=== PATIENT | female | born 1955 | race American Indian/Alaskan Native ===

== ENCOUNTER 2017-08-12 11:33 | Emergency (ER) | payer SELFPAY ==
--- NOTE | 2017-08-12 12:10 | Emergency Department Report ---
ED General Adult HPI - General Chief complaint: Seizure Stated complaint: SEIZURE Time Seen by Provider: 08/12/17 12:09 Source: patient, EMS (ems notes not available at time of chart dictation), RN notes reviewed Mode of arrival: Stretcher Limitations: Altered Mental Status, Physical Limitation - History of Present Illness Initial comments: Past medical history: Ischemic stroke, left-sided, right-sided deficits, patient has home health aid, and is dependent on others for activities of daily living. Also has a history of multiple sclerosis and hypertension; private neurologist is Dr. Dimitry Pierce Patient is brought to the hospital by EMS for seizure-like activity. As per verbal report from nurse, there is no trauma, family corroborates this, patient given Ativan in the field by EMS, he should now sleepy, and is not able to describe exacerbating or relieving factors. As per her family, patient has been neurologically devastated from her prior stroke, and is heavily dependent on home health aide for help with activities of daily living. At her baseline, she requires assistance with getting dressed , getting closed, going to the bathroom. No fevers or chills. -: Gradual Improves with: medication - Related Data Home Medications Medication Instructions Recorded Confirmed Last Taken Losartan Potassium 50 mg PO DAILY 08/12/17 08/12/17 Unknown Metoprolol 25 mg PO BID 08/12/17 08/12/17 Unknown Sertraline 50 mg PO DAILY 08/12/17 08/12/17 Unknown Vitamin D3 500 mg PO DAILY 08/12/17 08/12/17 Unknown amLODIPine 5 mg PO DAILY 08/12/17 08/12/17 Unknown Previous Rx's Medication Instructions Recorded Last Taken Type levETIRAcetam [Keppra ORAL LIQ] 500 mg PO BID #1 bottle 08/12/17 Unknown Rx Allergies Allergy/AdvReac Type Severity Reaction Status Date / Time No Known Allergies Allergy Verified 08/12/17 11:50 ED Review of Systems ROS: Stated complaint: SEIZURE Other details as noted in HPI Constitutional: malaise Eyes: denies: vision change ENT: denies: epistaxis Respiratory: denies: cough Cardiovascular: denies: chest pain Gastrointestinal: denies: vomiting Genitourinary: as per HPI Musculoskeletal: as per HPI Skin: as per HPI Neurological: as per HPI, weakness Psychiatric: as per HPI ED Past Medical Hx - Past Medical History Hx Hypertension: Yes Additional medical history: MS stroke - Surgical History Past Surgical History?: No - Social History Smoking Status: Never Smoker Substance Use Type: None - Medications Home Medications: Home Medications Medication Instructions Recorded Confirmed Last Taken Type Losartan Potassium 50 mg PO DAILY 08/12/17 08/12/17 Unknown History Metoprolol 25 mg PO BID 08/12/17 08/12/17 Unknown History Sertraline 50 mg PO DAILY 08/12/17 08/12/17 Unknown History Vitamin D3 500 mg PO DAILY 08/12/17 08/12/17 Unknown History amLODIPine 5 mg PO DAILY 08/12/17 08/12/17 Unknown History levETIRAcetam [Keppra ORAL LIQ] 500 mg PO BID #1 bottle 08/12/17 Unknown Rx ED Physical Exam - General Limitations: Altered Mental Status, Physical Limitation General appearance: in no apparent distress - Head Head exam: Present: atraumatic, normocephalic - Eye Eye exam: Present: normal appearance, PERRL, EOMI - ENT ENT exam: Present: normal exam, normal orophraynx, mucous membranes moist, TM's normal bilaterally, normal external ear exam - Neck Neck exam: Present: normal inspection, full ROM. Absent: tenderness, meningismus - Respiratory Respiratory exam: Present: normal lung sounds bilaterally. Absent: respiratory distress, wheezes, rales, rhonchi, stridor, chest wall tenderness, accessory muscle use, decreased breath sounds, prolonged expiratory - Cardiovascular Cardiovascular Exam: Present: regular rate, normal rhythm, normal heart sounds. Absent: bradycardia, tachycardia, irregular rhythm, systolic murmur, diastolic murmur, rubs, gallop - GI/Abdominal GI/Abdominal exam: Present: soft, normal bowel sounds. Absent: distended, tenderness, guarding, rebound, rigid, pulsatile mass - Extremities Exam Extremities exam: Present: normal inspection, normal capillary refill. Absent: tenderness, calf tenderness - Back Exam Back exam: Present: normal inspection. Absent: tenderness, paraspinal tenderness - Neurological Exam Neurological exam: Present: alert, motor sensory deficit, other (patient is minimally verbal. She occasionally says "yes." Patient has 4 out of 5 strength bilateral upper and lower extremities. Patient is unable to indicate whether not she has any sensation intact.) - Psychiatric Psychiatric exam: Present: normal affect, normal mood - Skin Skin exam: Present: warm, dry, intact, normal color. Absent: rash ED Course Vital Signs 08/12/17 08/12/17 08/12/17 11:50 12:47 13:19 Temperature 97.8 F 98.7 F Pulse Rate 67 59 L Respiratory 16 Rate Blood Pressure 139/47 Blood Pressure 125/80 [Right] O2 Sat by Pulse 97 100 Oximetry 08/12/17 08/12/17 08/12/17 14:27 15:00 15:30 Temperature Pulse Rate 57 L 52 L 56 L Respiratory 14 15 14 Rate Blood Pressure Blood Pressure 132/77 133/72 127/72 [Right] O2 Sat by Pulse 99 99 98 Oximetry 08/12/17 08/12/17 16:00 16:30 Temperature Pulse Rate 57 L 59 L Respiratory 13 Rate Blood Pressure Blood Pressure 123/73 131/81 [Right] O2 Sat by Pulse 99 Oximetry ED Medical Decision Making - Lab Data Result diagrams: 08/12/17 13:59 08/12/17 13:59 Vital Signs 08/12/17 08/12/17 08/12/17 11:50 12:47 13:19 Temperature 97.8 F 98.7 F Pulse Rate 67 59 L Respiratory 16 Rate Blood Pressure 139/47 Blood Pressure 125/80 [Right] O2 Sat by Pulse 97 100 Oximetry Lab Results 08/12/17 08/12/17 08/12/17 Range/Units 13:20 13:59 13:59 WBC (4.5-11.0) K/mm3 RBC (3.65-5.03) M/mm3 Hgb (10.1-14.3) gm/dl Hct (30.3-42.9) % MCV (79-97) fl MCH (28-32) pg MCHC (30-34) % RDW (13.2-15.2) % Plt Count (140-440) K/mm3 PT 13.1 (12.2-14.9) Sec. INR 0.94 (0.87-1.13) APTT 28.2 (24.2-36.6) Sec. Sodium 138 (137-145) mmol/L Potassium 4.4 (3.6-5.0) mmol/L Chloride 102.6 (98-107) mmol/L Carbon Dioxide 27 (22-30) mmol/L Anion Gap 13 mmol/L BUN 7 (7-17) mg/dL Creatinine 0.7 (0.7-1.2) mg/dL Estimated GFR > 60 ml/min BUN/Creatinine Ratio 10 % Glucose 92 (65-100) mg/dL POC Glucose (70-105) Calcium 10.5 H (8.4-10.2) mg/dL Total Creatine Kinase (30-135) units/L HCG, Quant (0-4) mIU/mL Urine Color Straw (Yellow) Urine Turbidity Clear (Clear) Urine pH 7.0 (5.0-7.0) Ur Specific [place] 1.004 (1.003-1.030) Urine Protein <15 mg/dl (Negative) mg/dL Urine Glucose (UA) Neg (Negative) mg/dL Urine Ketones Neg (Negative) mg/dL Urine Blood Neg (Negative) Urine Nitrite Neg (Negative) Urine Bilirubin Neg (Negative) Urine Urobilinogen < 2.0 (<2.0) mg/dL Ur Leukocyte Esterase Neg (Negative) Urine WBC (Auto) < 1.0 (0.0-6.0) /HPF Urine RBC (Auto) < 1.0 (0.0-6.0) /HPF U Epithel Cells (Auto) 1.0 (0-13.0) /HPF Urine Mucus Few /HPF 08/12/17 08/12/17 08/12/17 Range/Units 13:59 13:59 13:59 WBC 5.2 (4.5-11.0) K/mm3 RBC 5.06 H (3.65-5.03) M/mm3 Hgb 13.8 (10.1-14.3) gm/dl Hct 41.5 (30.3-42.9) % MCV 82 (79-97) fl MCH 27 L (28-32) pg MCHC 33 (30-34) % RDW 14.8 (13.2-15.2) % Plt Count 243 (140-440) K/mm3 PT (12.2-14.9) Sec. INR (0.87-1.13) APTT (24.2-36.6) Sec. Sodium (137-145) mmol/L Potassium (3.6-5.0) mmol/L Chloride (98-107) mmol/L Carbon Dioxide (22-30) mmol/L Anion Gap mmol/L BUN (7-17) mg/dL Creatinine (0.7-1.2) mg/dL Estimated GFR ml/min BUN/Creatinine Ratio % Glucose (65-100) mg/dL POC Glucose (70-105) Calcium (8.4-10.2) mg/dL Total Creatine Kinase 48 (30-135) units/L HCG, Quant 6.25 H (0-4) mIU/mL Urine Color (Yellow) Urine Turbidity (Clear) Urine pH (5.0-7.0) Ur Specific [place] (1.003-1.030) Urine Protein (Negative) mg/dL Urine Glucose (UA) (Negative) mg/dL Urine Ketones (Negative) mg/dL Urine Blood (Negative) Urine Nitrite (Negative) Urine Bilirubin (Negative) Urine Urobilinogen (<2.0) mg/dL Ur Leukocyte Esterase (Negative) Urine WBC (Auto) (0.0-6.0) /HPF Urine RBC (Auto) (0.0-6.0) /HPF U Epithel Cells (Auto) (0-13.0) /HPF Urine Mucus /HPF 08/12/17 Range/Units 14:30 WBC (4.5-11.0) K/mm3 RBC (3.65-5.03) M/mm3 Hgb (10.1-14.3) gm/dl Hct (30.3-42.9) % MCV (79-97) fl MCH (28-32) pg MCHC (30-34) % RDW (13.2-15.2) % Plt Count (140-440) K/mm3 PT (12.2-14.9) Sec. INR (0.87-1.13) APTT (24.2-36.6) Sec. Sodium (137-145) mmol/L Potassium (3.6-5.0) mmol/L Chloride (98-107) mmol/L Carbon Dioxide (22-30) mmol/L Anion Gap mmol/L BUN (7-17) mg/dL Creatinine (0.7-1.2) mg/dL Estimated GFR ml/min BUN/Creatinine Ratio % Glucose (65-100) mg/dL POC Glucose 112 H (70-105) Calcium (8.4-10.2) mg/dL Total Creatine Kinase (30-135) units/L HCG, Quant (0-4) mIU/mL Urine Color (Yellow) Urine Turbidity (Clear) Urine pH (5.0-7.0) Ur Specific [place] (1.003-1.030) Urine Protein (Negative) mg/dL Urine Glucose (UA) (Negative) mg/dL Urine Ketones (Negative) mg/dL Urine Blood (Negative) Urine Nitrite (Negative) Urine Bilirubin (Negative) Urine Urobilinogen (<2.0) mg/dL Ur Leukocyte Esterase (Negative) Urine WBC (Auto) (0.0-6.0) /HPF Urine RBC (Auto) (0.0-6.0) /HPF U Epithel Cells (Auto) (0-13.0) /HPF Urine Mucus /HPF - EKG Data -: EKG Interpreted by Sc EKG shows normal: sinus rhythm - EKG Data When compared to previous EKG there are: previous EKG unavailable 08/12/17 16:21 Normal sinus, 57 beats per minute, borderline left axis deviation, low voltage in the anteroseptal leads, patient not endorsing chest pain, not morphologically consistent with STEMI, QTC within normal limits. - Radiology Data Radiology results: report reviewed, image reviewed Noncontrast CT scan demonstrates chronic white matter ischemic changes. No acute findings. X-ray the chest is negative. - Medical Decision Making Differential diagnosis: Pneumonia, intracranial hemorrhage, urinary tract infection, electrolyte derangement, convulsive activity secondary to underlying multiple sclerosis and large old ischemic stroke Assessment and plan: 62-year-old female, poor mobility at baseline, dependent on others for help with activities of daily living, underlying history of ischemic stroke, sclerosis, with nonspecific convulsive event today. This was terminated with Ativan from EMS in the field. The patient is afebrile with reassuring vital signs, is sleepy but arousable, follows commands, only at the bedside, they think that she is slightly sleepy when compared to baseline, however the indicate that her motor exam appears to be unchanged from baseline. Contacted her private neurologist, Dr. Dimitry Pierce and relayed the patient's physical exam findings, history and laboratory findings. He does not recommend admission for MRI, and advises that underlying multiple sclerosis and large history of ischemic stroke risk factors for convulsive activity. He does recommend Keppra, 500 mg twice daily, and indicates he will have his office contact the patient's family to arrange close outpatient follow-up. Patient observed in the ER for a prolonged time without clinical decompensation, she will be discharged at this time, family understands that she cannot drive, and neurology will follow her up. Critical care attestation.: If time is entered above; I have spent that time in minutes in the direct care of this critically ill patient, excluding procedure time. ED Disposition Clinical Impression: History of convulsions Disposition: - TO HOME OR SELFCARE Is pt being admited?: No Does the pt Need Aspirin: No Condition: Stable Instructions: New-Onset Seizure in Adults (ED) Additional Instructions: Take the Keppra seizure medication as directed. Follow up with your neurology specialist within the next 3-5 days. [facility] [address], [address] [place] [id number] For General Information: [phone] a car or operate motor vehicles until cleared by her primary care doctor or neurologist. Return to the ER Runaway with new pain, worsened pain, migration of pain, fevers, chills, lethargy, irritability, projectile vomiting, change in mental status, inability to tolerate liquid feeds , confusion, lethargy. Prescriptions: levETIRAcetam [Keppra ORAL LIQ] 500 mg PO BID #1 bottle Referrals: JOEY BELL MD [Primary Care Provider] - 3-5 Days MP ROSE MD [Referring] - 3-5 Days BOOGIE CASTILLO MD [Staff Physician] - 3-5 Days AALIYAH LINARES MD [Staff Physician] - 3-5 Days
--- NOTE | 2017-08-12 13:38 | Cat Scan Report ---
Cranial CT without contrast. History: Seizure. Findings: There no prior studies available for comparison. There is a large area of encephalomalacia involving the left MCA territory primarily involving the left temporal and parietal lobes. There is a small area of encephalomalacia in the right MCA territory. There is no evidence of acute infarct or hemorrhage. There is a chronic infarct in the left cerebellar hemisphere. A chronic lacunar infarct is seen in the right cerebellar hemisphere. There are no masses or extra-axial collections. The calvarium is intact. Impression: No acute findings. Numerous areas of chronic infarct/encephalomalacia, the largest of which is in the MCA territory are described.
[2017-08-12 14:04] LABS: Bilirubin,Urine NEG (Negative); Blood,Urine NEG (Negative); Ketones,Urine NEG (Negative); Leukocyte Esterase,Urine NEG (Negative); Mucus,Urine FEW /HPF; Nitrite,Urine NEG (Negative); Protein,Urine <15 mg/dL mg/dL (Negative); RBC,Urine < 1.0 /HPF (0.0-6.0); Urobilinogen,Urine < 2.0 mg/dL (<2.0); WBC,Urine < 1.0 /HPF (0.0-6.0)
[2017-08-12 14:19] LABS: Hematocrit 41.5 % (30.3-42.9); Hemoglobin 13.8 gm/dl (10.1-14.3); Mean Corpuscular HGB Conc 33 % (30-34); Mean Corpuscular Hemoglobin 27 pg (28-32); Mean Corpuscular Volume 82 fl (79-97); Platelet Count 243 K/mm3 (140-440); Red Blood Count 5.06 M/mm3 (3.65-5.03); Red Cell Distribution Width 14.8 % (13.2-15.2); White Blood Count 5.2 K/mm3 (4.5-11.0)
[2017-08-12 14:27] LABS: Anion Gap 13 mmol/L; BUN/Creatinine Ratio 10; Blood Urea Nitrogen 7 mg/dL (7-17); Calcium 10.5 mg/dL (8.4-10.2); Carbon Dioxide 27 mmol/L (22-30); Chloride 102.6 mmol/L (98-107); Glucose 92 mg/dL (65-100); Potassium 4.4 mmol/L (3.6-5.0); Sodium 138 mmol/L (137-145)
--- NOTE | 2017-08-12 14:31 | XRay Report ---
Single view chest: History: Seizure, PNA. Findings: Normal cardiomediastinal silhouette. Trachea is midline. No consolidation, pneumothorax or pleural effusion. Impression: No acute cardiopulmonary findings.
[2017-08-12 14:33] LABS: INR 0.94 (0.87-1.13); Partial Thromboplastin Time 28.2 Sec. (24.2-36.6)
[2017-08-12] MEDS ORDERED: KEPPRA 1,000 MG/NS 0.75% 100ML 1,000 MG/100 ML BAG IV ONE (16:18)
[2017-08-12] MEDS ORDERED: KEPPRA PO ONE (16:45)
[2017-08-12 17:17] VITALS: BP 131/81
== END 2017-08-12 17:18 | disposition home or self-care (01) ==
LOC: ED 11:33 → EDBD 11:33 → ED 17:18
DX: R56.9 Unspecified convulsions (principal); I10 Essential (primary) hypertension
CPT/HCPCS: 36415; 70450; 71010; 80048; 81001; 82550; 82962; 84702; 85027; 85610; 85730; 93005; 93010; 99285; J1953